=== PATIENT | female | born 1945 | race Caucasian/White ===

== ENCOUNTER → 2017-06-09 | Outpatient (CLI) | payer MEDICARE, OTHER ==
[~2017-06-09] MED LIST: ASPIRIN EC325 MG PO; COZAAR100 MG PO; ECOTRIN325 MG PO; ENDOCET 5-3251 EACH PO; GLUCOPHAGE500 MG PO; LOPRESSOR50 MG PO; MOBIC15 MG PO; MUPIROCIN22 GM TP; OXYCONTIN10 MG PO; PERCOCET 5/31 TABLET PO; PRILOSEC40 MG PO; SENNA PLUS TAB1 EACH PO; TRAMADOL HCL50 MG PO; ULTRAM50 MG PO; VITAFUSION GUMMY PO; ZOCOR40 MG PO
== END | disposition home or self-care (01) ==
LOC: CDC 15:00
DX: Z01.810 Encounter for preprocedural cardiovascular examination (principal); G56.01 Carpal tunnel syndrome, right upper limb; M65.331 Trigger finger, right middle finger; M65.341 Trigger finger, right ring finger; I51.7 Cardiomegaly; R00.1 Bradycardia, unspecified
CPT/HCPCS: 93000